=== PATIENT | female | born 1955 | race Caucasian/White ===

== ENCOUNTER 2017-07-09 21:30 | Emergency (ER) | payer OTHER ==
[~2017-07-09] VITALS: Ht 152.4 cm; Wt 95.3 kg
[2017-07-09 21:32] VITALS: BP 153/80
[2017-07-09] MEDS ORDERED: LIDOCAINE 1% 500 MG/50 ML VIAL INJ ONE (23:20)
--- NOTE | 2017-07-09 23:38 | NUR ---
TO ER OF1
--- NOTE | 2017-07-10 00:20 | NUR ---
Patient being evaluated by DR. GREEN at bedside.
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
--- NOTE | 2017-07-10 00:41 | NUR ---
DR. GREEN PERFORMS I AND D AT BEDSIDE
--- NOTE | 2017-07-10 01:10 | NUR ---
Patient discharged with v/s stable. Written and verbal after care instructions given and explained. Patient alert, oriented and verbalized understanding of instructions. Ambulatory with steady gait. All questions addressed prior to discharge. ID band removed. Patient advised to follow up with PMD. Rx of BACTRIM DS, TRAMADOL 50 MG, KEFLEX 500 MG given. Patient educated on indication of medication including possible reaction and side effects. Opportunity to ask questions provided and answered.
[2017-07-10 01:29] VITALS: BP 138/84
== END 2017-07-10 01:10 | disposition home or self-care (01) ==
LOC: MED 21:30
DX: L02.413 Cutaneous abscess of right upper limb (principal); I10 Essential (primary) hypertension; Z88.6 Allergy status to analgesic agent
CPT/HCPCS: 10060; 99283; J2001

== ENCOUNTER 2017-07-13 16:16 | Emergency (ER) | payer OTHER ==
[~2017-07-13] VITALS: Ht 152.4 cm; Wt 95.3 kg
[2017-07-13 16:31] VITALS: BP 156/88
--- NOTE | 2017-07-13 16:32 | NUR ---
Patient ambulated to bed 03.
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
--- NOTE | 2017-07-13 17:18 | NUR ---
ER MD DR. GREEN EVALUATING PT AT BEDSIDE.
[2017-07-13 17:33] VITALS: BP 125/74
--- NOTE | 2017-07-13 17:33 | NUR ---
Patient discharged with v/s stable. Written and verbal after care instructions given and explained. Patient verbalized understanding. Ambulatory with . All questions addressed prior to discharge. Advised to follow up with PMD.
== END 2017-07-13 17:33 | disposition home or self-care (01) ==
LOC: MED 16:16
DX: Z48.01 Encounter for change or removal of surgical wound dressing (principal); R03.0 Elevated blood-pressure reading, without diagnosis of hypertension; Z88.6 Allergy status to analgesic agent
CPT/HCPCS: 99283

== ENCOUNTER 2018-01-07 20:51 | Emergency (ER) | payer OTHER ==
[~2018-01-07] VITALS: Ht 152.4 cm; Wt 95.3 kg
[2018-01-07 20:59] VITALS: BP 151/100
--- NOTE | 2018-01-07 21:06 | NUR ---
TO ER CHAIR Eliazar
--- NOTE | 2018-01-07 21:18 | NUR ---
MOVED TO ER BED 1
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
--- NOTE | 2018-01-07 21:22 | NUR ---
PT BACK FROM XRAY
[2018-01-07] MEDS ORDERED: KETOROLAC 30 MG/ML VIAL IM ONE (21:25)
[2018-01-07] MEDS ORDERED: fentaNYL 0.05 MG/ML VIAL NS ONE (21:25)
[2018-01-07 22:50] VITALS: BP 149/95
--- NOTE | 2018-01-07 22:50 | NUR ---
Patient discharged with v/s stable. Written and verbal after care instructions given and explained. Patient alert, oriented and verbalized understanding of instructions. Ambulatory with steady gait. All questions addressed prior to discharge. ID band removed. Patient advised to follow up with PMD. Rx of NAPROSYN 500MG AND NORCO 5MG-325MG given. Patient educated on indication of medication including possible reaction and side effects. Opportunity to ask questions provided and answered.
== END 2018-01-07 22:50 | disposition home or self-care (01) ==
LOC: MED 20:51
DX: S52.591A Other fractures of lower end of right radius, initial encounter for closed fracture (principal); S52.601A Unspecified fracture of lower end of right ulna, initial encounter for closed fracture; Z88.5 Allergy status to narcotic agent; W01.198A Fall on same level from slipping, tripping and stumbling with subsequent striking against other object, initial encounter; Y93.89 Activity, other specified; Y92.89 Other specified places as the place of occurrence of the external cause; Y99.8 Other external cause status
CPT/HCPCS: 29125; 73110; 96372; 99284; J1885; J3010

== ENCOUNTER 2019-04-01 12:07 | Emergency (ER) | payer OTHER ==
[~2019-04-01] VITALS: Ht 152.4 cm; Wt 100.2 kg
[2019-04-01 12:20] VITALS: BP 159/72
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
--- NOTE | 2019-04-01 13:46 | NUR ---
ER AT BEDSIDE
--- NOTE | 2019-04-01 14:17 | NUR ---
PT GOING TO X-RAY AT THIS TIME.
--- NOTE | 2019-04-01 14:17 | NUR ---
PT SIGNED CONSENT FOR CT W/ CONTRAST, 20 G IN RT AC.
[2019-04-01 14:19] LABS: BASOPHILS # (AUTO) 0.1 K/uL (0.00-0.22); BASOPHILS % (AUTO) 0.8 % (0.0-2.0); EOSINOPHILS # (AUTO) 0.2 K/uL (0-0.4); EOSINOPHILS % (AUTO) 3.8 % (0.0-4.0); HEMATOCRIT 41.9 % (36-48); LYMPHOCYTES # (AUTO) 1.6 K/uL (2.5-16.5); LYMPHOCYTES % (AUTO) 26.6 % (20.5-51.1); MEAN CORPUSCULAR HEMOGLOBIN 29 pg (27-31); MEAN CORPUSCULAR HGB CONC 33 g/dL (33-37); MONOCYTES # (AUTO) 0.4 K/uL (0.8-1.0); MONOCYTES % (AUTO) 6.4 % (1.7-9.3); NEUTROPHILS # (AUTO) 3.8 K/uL (1.8-7.7); NEUTROPHILS % (AUTO) 62.4 % (42.2-75.2); PLATELET COUNT (AUTO) 215 K/uL (140-450); RED BLOOD CELL COUNT(AUTO) 4.88 MIL/uL (4.20-5.40); RED CELL DISTRIBUTION WIDTH 15.2 % (11.6-13.7); WHITE BLOOD COUNT (AUTO) 6.1 K/uL (4.8-10.8)
[2019-04-01 14:28] LABS: ANION GAP 13.3 (8-16); CARBON DIOXIDE 23.9 mmol/L (21-32); CREATININE 0.8 mg/dL (0.6-1.3); POTASSIUM 4.2 mmol/L (3.5-5.1)
[2019-04-01 14:36] LABS: ALBUMIN 2.9 g/dL (3.4-5.0); TOTAL BILIRUBIN 0.4 mg/dL (0.0-1.0)
[2019-04-01] MEDS ORDERED: fentaNYL 0.05 MG/ML VIAL IVP ONE (15:45)
--- NOTE | 2019-04-01 16:41 | NUR ---
PT RESTING IN BED, DAUGHTER AT BEDSIDE, PT REPORTS NO PAIN AT THIS TIME, VSS.
--- NOTE | 2019-04-01 18:41 | NUR ---
CALLED REPORT TO CHARGE NURSE RUPINDER AT [facility] ER.
--- NOTE | 2019-04-01 19:00 | NUR ---
[facility] AT BEDSIDE
[2019-04-01 19:03] VITALS: BP 140/78
--- NOTE | 2019-04-01 19:03 | NUR ---
Patient to be transferred to [facility]. Is being transferred due to HIGHER LEVEL OF CARE. Receiving facility has accepting physician and available space. ER physician has signed transfer form. Patient or responsible alliance party has agreed to transfer and signed form. Patient belongings inventoried and will be sent with patient. Copy of nursing notes, lab reports, EKG, Physicians Orders and X-rays to be sent with patient. Report called to RUPINDER BEAVER at receiving facility. [facility] ambulance service has been called for transfer. ETA is 45MIN.
--- NOTE | 2019-04-01 19:11 | NUR ---
PT TAKEN BY [facility] TO [facility]
== END 2019-04-01 19:11 | disposition short-term general hospital (02) ==
LOC: MED 12:07
DX: S22.41XA Multiple fractures of ribs, right side, initial encounter for closed fracture (principal); S22.089A Unspecified fracture of T11-T12 vertebra, initial encounter for closed fracture; N63.0 Unspecified lump in unspecified breast; Z88.6 Allergy status to analgesic agent; Z88.5 Allergy status to narcotic agent; V59.9XXA Occupant (driver) (passenger) of pick-up truck or van injured in unspecified traffic accident, initial encounter; Y93.89 Activity, other specified; Y92.89 Other specified places as the place of occurrence of the external cause; Y99.8 Other external cause status
CPT/HCPCS: 36415; 70450; 70486; 71111; 71260; 72110; 72125; 74177; 80053; 85025; 90471; 90715; 96374; 99284; J3010

== ENCOUNTER 2021-12-26 23:46 | Emergency (ER) | payer OTHER ==
[~2021-12-26] VITALS: Ht 142.2 cm; Wt 66.3 kg
[2021-12-26 23:50] VITALS: BP 158/100
--- NOTE | 2021-12-27 00:18 | NUR ---
66 YO F BIB DAUGHTER WITH C/C OF 8/10 RT LOWER BACK PAIN [id number]. PT STATES SHE HAS BEEN TAKING NORCO WITH NO RELIEF THAT WAS PRESCRIBED BY PRIMARY. PT DENIES INJURIES. DENIES URINARY CHANGES. LAST DOSE OF NORCO WAS TAKEN AT 7PM. HX:METASTATIC BREAST CANCER TO LUNGS ALLERGIES TO ASPIRIN
--- NOTE | 2021-12-27 00:35 | NUR ---
PT STATED SHE WILL TAKE HER NORCO SINCE IT'S TIME.
[2021-12-27] MEDS ORDERED: IBUPROFEN 800 MG TAB PO ONE (01:00)
[2021-12-27] MEDS ORDERED: MORPHINE SULFATE 4 MG/ML SYR IM ONE (01:00)
[2021-12-27] MEDS ORDERED: LIDOCAINE 5% 1 EA PATCH TP SCH (01:00)
[2021-12-27] MEDS ORDERED: methocarbamoL 500 MG TAB PO ONE (01:00)
--- NOTE | 2021-12-27 02:07 | NUR ---
PT IS SITTING UP IN BED. DAUGHTER AT BEDSIDE. ALL NEEDS MET AT THIS TIME. PT IS IN STABLE CONDITION. BED LOCKED IN LOWEST POSITION, SIDE RAILS X2 FOR SAFETY.
[2021-12-27] MEDS ORDERED: METH-1681 PO (02:09)
[2021-12-27] MEDS ORDERED: LID5T TP (02:09)
[2021-12-27 02:13] VITALS: BP 158/100
--- NOTE | 2021-12-27 02:13 | NUR ---
Patient discharged with v/s stable. Written and verbal after care instructions given and explained. Patient alert, oriented and verbalized understanding of instructions. Ambulatory with steady gait. All questions addressed prior to discharge. ID band removed. Patient advised to follow up with PMD. Rx of ROBAXIN, LIDODERM given. Patient educated on indication of medication including possible reaction and side effects. Opportunity to ask questions provided and answered.
== END 2021-12-27 02:13 | disposition home or self-care (01) ==
LOC: MED 23:46
DX: M54.50 Low back pain, unspecified (principal); G89.29 Other chronic pain; Z85.3 Personal history of malignant neoplasm of breast; Z85.118 Personal history of other malignant neoplasm of bronchus and lung; Z79.899 Other long term (current) drug therapy; Z88.8 Allergy status to other drugs, medicaments and biological substances; Z88.6 Allergy status to analgesic agent; Z88.5 Allergy status to narcotic agent
CPT/HCPCS: 96372; 99284; J2270